=== PATIENT | female | born 1970 | race Caucasian/White ===

== ENCOUNTER 2017-04-12 14:32 | Emergency (ER) | payer SELFPAY ==
[~2017-04-12] VITALS: Ht 167.6 cm; Wt 67.8 kg
[~2017-04-12 14:32] MED LIST: IBUP800T25 PO; LEVO50TA74 PO
[2017-04-12 14:39] VITALS: Ht 167.6 cm; Wt 67.8 kg
== END 2017-04-12 16:58 | disposition left against medical advice (07) ==
LOC: FTE 14:32
DX: Z53.21 Procedure and treatment not carried out due to patient leaving prior to being seen by health care provider (principal)